=== PATIENT | female | born 1955 | race Caucasian/White ===

== ENCOUNTER 2017-02-20 00:50 | Emergency (ER) | payer SELFPAY ==
[~2017-02-20] VITALS: Ht 170.2 cm; Wt 129.3 kg
[~2017-02-20 00:50] MED LIST: LISI10TA11 PO; ORE25 PO
[2017-02-20 01:03] VITALS: BP 151/91
--- NOTE | 2017-02-20 01:21 | NUR ---
Patient taken to bed 11 via wheelchair.
[2017-02-20 01:23] VITALS: BP 151/91
--- NOTE | 2017-02-20 01:25 | NUR ---
PATIENT PRESENTS TO ED WITH RIGHT GREAT TOE PAIN S/P HITTING A BRICK X1 HOUR AGO PT DENIES N/V/D; SKIN IS PINK/WARM/DRY; AAOX4 WITH EVEN AND STEADY GAIT; LUNGS CLEAR BL; HR EVEN AND REGULAR; PT DENIES ANY FEVER, CP, SOB, OR COUGH AT THIS TIME; PATIENT STATES PAIN OF 10/10 AT THIS TIME; VSS; PATIENT POSITIONED FOR COMFORT; HOB ELEVATED; BEDRAILS UP X2; BED DOWN. ER MD MADE AWARE OF PT STATUS.
--- NOTE | 2017-02-20 01:31 | NUR ---
Dr. Auguste evaluating patient at bedside.
[2017-02-20] MEDS ORDERED: traMADol 50 MG TAB PO ONE (01:35)
--- NOTE | 2017-02-20 01:37 | NUR ---
Jhon forte in ED - 02/20/17 at 0157 by NEL XRAY at bedside.
--- NOTE | 2017-02-20 02:27 | NUR ---
Patient discharged with v/s stable. Written and verbal after care instructions given and explained. Patient alert, oriented and verbalized understanding of instructions. Ambulatory with steady gait. All questions addressed prior to discharge. ID band removed. Patient advised to follow up with PMD. Rx of TRAMADOL AND MOTRIN given. Patient educated on indication of medication including possible reaction and side effects. Opportunity to ask questions provided and answered.
== END 2017-02-20 02:27 | disposition home or self-care (01) ==
LOC: MED 00:50
DX: S90.111A Contusion of right great toe without damage to nail, initial encounter (principal); I10 Essential (primary) hypertension; E78.00 Pure hypercholesterolemia, unspecified; W18.49XA Other slipping, tripping and stumbling without falling, initial encounter; Y93.89 Activity, other specified; Y92.89 Other specified places as the place of occurrence of the external cause; Y99.8 Other external cause status
CPT/HCPCS: 73660; 99284; Q0092

== ENCOUNTER 2018-10-04 00:30 | Emergency (ER) | payer OTHER ==
[~2018-10-04] VITALS: Ht 170.2 cm; Wt 79.4 kg
[2018-10-04 00:35] VITALS: BP 180/110
--- NOTE | 2018-10-04 00:37 | NUR ---
TO LOBBY A/W BED, AMBULATORY
--- NOTE | 2018-10-04 01:26 | NUR ---
NO ANSWER @ [id number]. PATIENT LEFT WITHOUT BEING SEEN BY DR. MG. NO FURTHER CARE PROVIDED FOR PATIENT.
== END 2018-10-04 01:26 | disposition left against medical advice (07) ==
LOC: MED 00:30
DX: S31.119D Laceration without foreign body of abdominal wall, unspecified quadrant without penetration into peritoneal cavity, subsequent encounter (principal); Z53.21 Procedure and treatment not carried out due to patient leaving prior to being seen by health care provider; X58.XXXD Exposure to other specified factors, subsequent encounter

== ENCOUNTER 2019-06-10 20:15 | Observation (INO) | payer OTHER ==
[~2019-06-10] VITALS: Ht 170.2 cm; Wt 74.5 kg
--- NOTE | 2019-06-10 20:19 | NUR ---
Jhon forte in [facility] - 06/10/19 at 2019 by FILOMENA PT TAKEN TO BED 4
--- NOTE | 2019-06-10 20:19 | NUR ---
PT SHAYLEE LEOS. TAKEN TO BED 4
[2019-06-10 20:20] VITALS: BP 132/80
--- NOTE | 2019-06-10 20:39 | NUR ---
64 Y/O FEMALE BIB BLS S/P FRIEND CALLING 911 AFTER PT TOOK ONE KLONIPIN PILL, DRANK HALF A GLASS OF VODKA, SNORTED METH/COCAINE. PT RESP EVEN AND UNLABORED. SP02: 98% RA. GCS14. AAOX4. LUNG SOUNDS CLEAR IN BILAT LOBES. PT DENIES ANY PAIN. VSS. SKIN COOL/DRY/INTACT. PERRLA, 3MM. ABLE TO FOLLOW COMMANDS. PMH: HTN NKA
[2019-06-10] MEDS ORDERED: NACL 0.9% 1,000 ML IV SCH (20:47)
--- NOTE | 2019-06-10 20:57 | NUR ---
PTS NEPHEW WANTS CALL WITH UPDATES. KASANDRA
[2019-06-10 21:49] LABS: BASOPHILS # (AUTO) 0.1 K/uL (0.00-0.22); BASOPHILS % (AUTO) 1.3 % (0.0-2.0); EOSINOPHILS # (AUTO) 0.4 K/uL (0-0.4); EOSINOPHILS % (AUTO) 4.1 % (0.0-4.0); HEMATOCRIT 41.6 % (36-48); HEMOGLOBIN 14.1 g/dL (12.0-16.0); LYMPHOCYTES % (AUTO) 21.5 % (20.5-51.1); MEAN CORPUSCULAR HEMOGLOBIN 33 pg (27-31); MEAN CORPUSCULAR HGB CONC 34 g/dL (33-37); MEAN CORPUSCULAR VOLUME 98.1 fL (80-94); MONOCYTES # (AUTO) 0.7 K/uL (0.8-1.0); MONOCYTES % (AUTO) 7.4 % (1.7-9.3); NEUTROPHILS # (AUTO) 6.1 K/uL (1.8-7.7); NEUTROPHILS % (AUTO) 65.7 % (42.2-75.2); PLATELET COUNT (AUTO) 228 K/uL (140-450); RED BLOOD CELL COUNT(AUTO) 4.24 MIL/uL (4.20-5.40); WHITE BLOOD COUNT (AUTO) 9.3 K/uL (4.8-10.8)
--- NOTE | 2019-06-10 21:50 | NUR ---
PT RESTING IN BED. GCS 14. AAOX4. RESP EVEN AND UNLABORED. VSS.
--- NOTE | 2019-06-10 21:52 | NUR ---
X-Ray at bedside.
[2019-06-10 21:58] LABS: APPEARANCE,URINE CLEAR (CLEAR); BILIRUBIN,URINE NEGATIVE (NEGATIVE); BLOOD, URINE NEGATIVE (NEGATIVE); COLOR,URINE YELLOW (YELLOW); LEUKOCYTE ESTERASE ,URINE NEGATIVE (NEGATIVE); NITRITE, URINE NEGATIVE (NEGATIVE); UGLUCOSE NEGATIVE (NEGATIVE)
[2019-06-10 22:06] LABS: BARBITURATE, URINE NEG. ng/ml (NEG <=200); BENZODIAZEPINE, URINE NEG. ng/mL (NEG <=200); CANNABINOID, URINE POS. ng/mL (NEG <=50); COCAINE, URINE NEG. ng/mL (NEG <=300); OPIATE, URINE POS. ng/mL (NEG <=2000); PHENCYCLIDINE SCREEN,URINE NEG. ng/mL (NEG <=25)
[2019-06-10 22:06] LABS: ALBUMIN 3.6 g/dL (3.4-5.0); ANION GAP 9.9 (8-16); CARBON DIOXIDE 30.7 mmol/L (21-32); CREATININE 0.8 mg/dL (0.6-1.3); POTASSIUM 3.6 mmol/L (3.5-5.1); SALICYLATE 6.8 mg/dL (2.8-20.0); TOTAL BILIRUBIN 0.4 mg/dL (0.0-1.0)
[2019-06-10] MEDS ORDERED: HYDR1TAB28 PO (22:10)
[2019-06-10] MEDS ORDERED: GABA100C PO (22:10)
--- NOTE | 2019-06-10 23:00 | NUR ---
IV ACCESS ATTEMPTED AT BEDSIDE. UNABLE TO INITIATE IV ACCESS. PT REFUSED FURTHER ATTEMPTS TO GAIN IV ACCESS.
--- NOTE | 2019-06-10 23:15 | NUR ---
TEMITOPE FRAZIERAW AT BEDSIDE. PT AWAKE AND ALERT. VSS.
[2019-06-10 23:26] LABS: CREATINE KINASE MB 1.4 ng/mL (0-3.6)
[2019-06-11] MEDS ORDERED: DEXT 5% / NACL 0.45% 1,000 ML IV SCH (00:16)
[2019-06-11] MEDS ORDERED: ONDANSETRON 4 MG/2 ML VIAL IVP PRN (00:20)
[2019-06-11] MEDS ORDERED: LORazepam 2 MG/ML VIAL IVP PRN (00:20)
[2019-06-11] MEDS ORDERED: MORPHINE SULFATE 2 MG/ML SYR IVP PRN (00:20)
[2019-06-11] MEDS ORDERED: ACETAMINOPHEN 325 MG TAB PO PRN (00:20)
[2019-06-11] MEDS ORDERED: HYDROcodone/APAP 5/325 MG 1 TAB TAB PO PRN (00:20)
[2019-06-11 01:00] VITALS: BP 133/76
--- NOTE | 2019-06-11 01:00 | NUR ---
PT BROUGHT UP BY KEIKO AND WAS TRANSFERRED TO ROOM 120 BED A. PT IS AOX3, SHE DENIES ANY PAIN. PT DECLINED AN IJ AND NO IV ACCESS COULD BE OBTAINED. PT SKIN INTACT ALTHOUGH PT DOES HAVE +1 PITTING EDEMA OF LOWER LEGS. V/S FOLLOWS: T 97.0 P 64 R 18 B/P 133/76 02 97% ON ROOM AIR. ALL FALLS PRECAUTIONS IN PLACE.
[2019-06-11 01:03] VITALS: BP 134/76
--- NOTE | 2019-06-11 01:03 | NUR ---
Patient will be admitted to care of [facility]. Admited to TELE. Will go to room 120A. Belongings list completed. Report to JESSENIA OCHOA.
--- NOTE | 2019-06-11 04:00 | NUR ---
PT IN BED NO S/S OF PAIN OR DISTRESS NOTED V/S FOLLOWS; T 97.9 P 62 R 20 B/P 100/54 02 95%. NO C/O VOICED AND NO S/S OF PAIN OR DISTRESS NOTED. PT IS AOX3 AND AROUSABLE TO NAME AND LIGHT TOUCH.
--- NOTE | 2019-06-11 08:33 | NUR ---
PATIENT HAS BEEN SCREENED AND CATEGORIZED LOW NUTRITION RISK. PATIENT WILL BE SEEN WITHIN 7 DAYS OF ADMISSION. 06/17/[address]
--- NOTE | 2019-06-11 10:45 | NUR ---
Supervisor [place] Note: Patient is a 64-year-old female admitted for toxic encephalopathy. Patient has PMHX of hypertension. Patient was admitted from home. SW attempted to complete assessment, but patient signed AMA per DON Benites. No further needs identified.
--- NOTE | 2019-06-11 15:36 | NUR ---
PATIENT DISCHARGED FROM AMA AT 1100. EXPLAINED MEDICAL BENEFITS AND RISKS BY OPS ANALYST, PATIENT INSISTED, LOT OF COMPLAINTS ABOUNT ROOMMATE.
== END 2019-06-11 10:02 | disposition left against medical advice (07) ==
LOC: MED 20:15 → MTU 06-11 00:31
PROVIDERS: ADMIT Internal Medicine Pulmonary Disease; ATTEND Internal Medicine Pulmonary Disease
DX: F10.239 Alcohol dependence with withdrawal, unspecified (principal); R41.82 Altered mental status, unspecified; F14.23 Cocaine dependence with withdrawal; T40.5X5A Adverse effect of cocaine, initial encounter; F15.93 Other stimulant use, unspecified with withdrawal
CPT/HCPCS: 36415; 71045; 80053; 80305; 81003; 82550; 82553; 84484; 85025; 87081; 93005; 99291; G0378; G0480; G0482